=== PATIENT | female | born 1970 | race Caucasian/White ===

== ENCOUNTER → 2021-12-02 | Outpatient (CLI) | payer SELFPAY | LOC: LAB 13:14 | DX: N39.0 Urinary tract infection, site not specified (principal); N94.89 Other specified conditions associated with female genital organs and menstrual cycle; N76.0 Acute vaginitis ==

== ENCOUNTER → 2021-12-11 | Outpatient (CLI) | payer SELFPAY ==
[2021-12-11 17:09] LABS: BASO # 0.12 K/mm3 (0.02-0.10); EOS # 0.15 K/mm3 (0.04-0.40); EOS % 1.5 % (1.0-5.0); HEMATOCRIT 45.4 % (37.0-47.0); HEMOGLOBIN 15.3 g/dL (12.5-16.0); LYMPH# 2.55 K/mm3 (1.50-4.00); MEAN CELL VOLUME 94 fl (78-100); MEAN CORPUSCULAR HEMOGLOBIN 32 pg (27-31); MEAN CORPUSCULAR HGB CONC 34 g/dL (33-37); MEAN PLATELET VOLUME 10.2 fl (7.4-10.4); MONO # 1.04 K/mm3 (0.20-0.80); NEU # 6.15 K/mm3 (1.40-6.50); PLATELET COUNT 346 K/mm3 (130-400); RED BLOOD COUNT 4.85 M/mm3 (4.10-5.30)
[2021-12-11 17:13] LABS: ALBUMIN 4.6 g/dL (3.5-5.0); POTASSIUM 3.7 mmol/L (3.5-5.1)
[2021-12-11 17:14] LABS: CALCIUM 10.1 mg/dL (8.3-10.5)
[2021-12-11 17:15] LABS: TOTAL PROTEIN 8.8 g/dL (6.4-8.3)
[2021-12-11 17:17] LABS: TOTAL BILIRUBIN 0.4 mg/dL (0.2-1.2)
== END ==
LOC: LAB 16:51
PROVIDERS: Nurse Practitioner
DX: R31.9 Hematuria, unspecified (principal)

== ENCOUNTER → 2021-12-20 | Outpatient (CLI) | payer SELFPAY ==
[2021-12-20 14:56] LABS: CLUE CELLS PRESENT (Not Observd)
== END ==
LOC: LAB 14:12
PROVIDERS: Nurse Practitioner
DX: N89.8 Other specified noninflammatory disorders of vagina (principal)
CPT/HCPCS: Q0111

== ENCOUNTER → 2022-01-16 | Outpatient (CLI) | payer SELFPAY ==
[2022-01-16 12:20] LABS: CLUE CELLS PRESENT (Not Observd)
== END ==
LOC: MAMMO 01-07 10:00 → LAB 09:58 → MAMMO 09:58
PROVIDERS: Nurse Practitioner
DX: Z12.31 Encounter for screening mammogram for malignant neoplasm of breast (principal); N89.8 Other specified noninflammatory disorders of vagina; N92.1 Excessive and frequent menstruation with irregular cycle; Z87.440 Personal history of urinary (tract) infections
CPT/HCPCS: Q0111

== ENCOUNTER → 2022-04-22 | Outpatient (CLI) | payer SELFPAY | LOC: LAB 09:08 | DX: E55.9 Vitamin D deficiency, unspecified (principal) ==

== ENCOUNTER → 2023-03-05 | Outpatient (CLI) | payer SELFPAY ==
[2023-03-05 12:26] LABS: EOS # 0.14 K/mm3 (0.04-0.40); HEMATOCRIT 48.1 % (37.0-47.0); HEMOGLOBIN 15.6 g/dL (12.5-16.0); LYMPH# 1.96 K/mm3 (1.50-4.00); MEAN CELL VOLUME 98 fl (78-100); MEAN CORPUSCULAR HEMOGLOBIN 32 pg (27-31); MEAN CORPUSCULAR HGB CONC 32 g/dL (33-37); MONO # 0.53 K/mm3 (0.20-0.80); PLATELET COUNT 274 K/mm3 (130-400); RED BLOOD COUNT 4.92 M/mm3 (4.10-5.30); RED CELL DISTRIBUTION WIDTH 13.7 % (11.5-14.5); WHITE BLOOD COUNT 6.8 K/mm3 (4.8-10.8)
[2023-03-05 12:42] LABS: ALBUMIN 4.3 g/dL (3.5-5.0)
[2023-03-05 12:43] LABS: CALCIUM 9.7 mg/dL (8.3-10.5)
[2023-03-05 12:44] LABS: TOTAL PROTEIN 8.3 g/dL (6.4-8.3)
[2023-03-05 12:46] LABS: TOTAL BILIRUBIN 0.5 mg/dL (0.2-1.2)
== END ==
LOC: LAB 12:11
PROVIDERS: Nurse Practitioner
DX: Z00.00 Encounter for general adult medical examination without abnormal findings (principal); J31.2 Chronic pharyngitis

== ENCOUNTER → 2023-03-09 | Outpatient (CLI) | payer SELFPAY ==
[2023-03-10 05:53] LABS: HERPES SIMPLEX TYPE 1 IGG 0.22 Index (()); HERPES SIMPLEX TYPE 1 IGG INTP Negative (Negative); HERPES SIMPLEX TYPE 2 IGG 0.05 Index (())
== END ==
LOC: LAB 11:24
PROVIDERS: Nurse Practitioner
DX: J31.2 Chronic pharyngitis (principal)

== ENCOUNTER → 2023-03-12 | Outpatient (CLI) | payer SELFPAY | LOC: MAMMO 10:42 | DX: Z12.31 Encounter for screening mammogram for malignant neoplasm of breast (principal) ==

== ENCOUNTER → 2023-09-25 | Outpatient (CLI) | payer SELFPAY | LOC: LAB 14:20 | DX: U07.1 COVID-19 (principal) ==

== ENCOUNTER → 2024-03-07 | Outpatient (CLI) | payer SELFPAY ==
[2024-03-08 20:08] LABS: TB GOLD INTERPRETATION.TB GOLD Negative (Negative)
== END ==
LOC: LAB 10:36
PROVIDERS: Dermatology
DX: Z51.81 Encounter for therapeutic drug level monitoring (principal); Z79.899 Other long term (current) drug therapy